=== PATIENT | female | born 1980 | race Caucasian/White ===

== ENCOUNTER 2017-08-25 12:45 | Emergency (ER) | payer BC ==
[~2017-08-25] VITALS: Ht 165.1 cm; Wt 89.0 kg
[~2017-08-25 12:45] MED LIST: PRENTAB26 PO
[2017-08-25 12:52] VITALS: TEMP 37.1; Ht 165.1 cm; Wt 89.0 kg
--- NOTE | 2017-08-25 13:28 | EMERGENCY ROOM VISIT NOTE ---
History Report prepared by Rhett: Pelon Sanchez Under the Supervision of: Dr. Almaz Rodgers D.O. First contact with patient: 13:05 Chief Complaint: ABDOMINAL PAIN Stated Complaint: LEFT LOWER ABDOMINAL PAIN Nursing Triage Summary: triage note: pt reports left abd pain since monday night. pt reports nausea. History of Present Illness The patient is a 36 year old female who presents to the Emergency Room with complaints of on and off left lower quadrant abdominal pain for the past three days. The pain is relieved with urination and standing. The patient notes that three days ago she had some back pain, though this went away and then later she got abdominal pain. She reports that two days ago she was adjusted by her chiropractor which helped with pain a little bit, and then she later had a bowel movement and felt a lot better. She notes that the bowel movement was "prickly". She states that yesterday after having [employer] she started to have the pain again, and it has been coming and going since then. She denies any more back pain, blood in her stools, and nausea. The patient states that she is prone to diarrhea, though she has not been diagnosed with IBS. She notes that she has had a bowel movement since the first one, and she notes that it was relatively normal for her. She additionally notes that she has a decreased appetite, chills, and shakiness. The patient denies any history of abdominal surgery and gynecologic problems, and she states that she has an IUD in place. She denies any family history of GI problems, kidney stones, and gynecological problems. She states that she has had an ear infection for the past 6 months. The patient has not been taking anything for the pain. Source of History: patient Onset: three days ago Position: abdomen (LLQ) Timing: other (on and off) Modifying Factors (Worsening): urination, other (standing) Associated Symptoms: + chills, + back pain, No nausea Note: Associated symptoms: Decreased appetite and shakiness Review of Systems See HPI for pertinent positives & negatives. A total of 10 systems reviewed and were otherwise negative. Past Medical & Surgical Social History Problems: (1) IUD (intrauterine device) in place Social History Smoking Status: Never Smoker Marital Status: Housing Status: lives with family Occupation Status: employed Current/Historical Medications Scheduled Multivit/Min/Iron/Fol Ac/Pren ( Vitamin), 1 TAB PO DAILY Probiotic Product (Probiotic), 1 TAB PO DAILY Allergies Coded Allergies: Amoxicillin (Verified Allergy, Unknown, ., 08/25/17) Cefaclor (Verified Allergy, Unknown, ., 08/25/17) Cefixime (Verified Allergy, Unknown, ., 08/25/17) Erythromycin (Verified Allergy, Unknown, ., 08/25/17) Penicillins (Verified Allergy, Unknown, ., 08/25/17) Pertussis Vaccine (Verified Allergy, Unknown, ., 08/25/17) Sodium Benzoate (Verified Allergy, Unknown, ., 08/25/17) Sulfa Drugs (Verified Allergy, Unknown, ., 08/25/17) Physical Exam Vital Signs Date Time Temp Pulse Resp B/P (MAP) Pulse Ox O2 Delivery O2 Flow Rate FiO2 08/25/17 15:53 92 18 137/98 98 Room Air 08/25/17 14:10 91 18 128/85 99 Room Air 08/25/17 12:52 37.1 115 20 164/97 99 Room Air Physical Exam GENERAL: alert, anxious and tearful appearing, well nourished, no distress, non- toxic EYE EXAM: normal conjunctiva, PERRL and EOM's grossly intact OROPHARYNX: no exudate, no erythema, lips, buccal mucosa, and tongue normal and mucous membranes are moist NECK: supple, no nuchal rigidity, no adenopathy, non-tender LUNGS: Clear to auscultation. Normal chest wall mechanics HEART: no murmurs, S1 normal and S2 normal ABDOMEN: Left lower quadrant tenderness and left parapubic area tenderness. Abdomen soft, normo-active bowel sounds, no masses, no rebound or guarding. BACK: Back is symmetrical on inspection and there is no deformity, no midline tenderness, no CVA tenderness. SKIN: no rashes and no bruising UPPER EXTREMITIES: upper extremities are grossly normal. LOWER EXTREMITIES: No pitting edema. NEURO EXAM: Normal sensorium, cranial nerves II-XII grossly intact, normal speech, no gross weakness of arms, no gross weakness of legs. Medical Decision & Procedures ER Provider Diagnostic Interpretation: Radiology results have been interpreted by the radiologist and reviewed by me. ABDOMEN AND PELVIS CT WITHOUT CONTRAST CT DOSE: 1010.75 mGycm HISTORY: Acute left lower quadrant abdominal pain llq pain TECHNIQUE: Multiaxial CT images of the abdomen and pelvis were performed without contrast. A dose lowering technique was utilized adhering to the principles of ALARA. COMPARISON STUDY: None. FINDINGS: The imaged lung bases appear clear. There is no pneumatosis or pneumoperitoneum identified. The imaged inferior cardiac chambers are unremarkable. Evaluation of the solid abdominal organs is limited without the use of IV contrast. Within the limitations of the study, the liver, gallbladder, spleen and and adrenal glands are within normal limits. Low attenuating 5 mm structure within the region of the pancreatic appears to demonstrate internal macroscopic fat attenuation possibly reflecting a small lipoma. No pancreatic ductal dilation. The kidneys, ureters and urinary bladder are within normal limits. No renal calculi or obstructive uropathy. There is an intrauterine device present within the mid and fundal portions of the uterus which appears to be appropriately positioned. Right adnexum is unremarkable. There is a well-defined hemorrhagic focus of the left adnexum measuring up to 2.1 x 1.4 cm with mild adjacent free fluid and stranding. Aorta is normal in course and caliber. There is no bulky adenopathy. No bowel obstruction or focal bowel wall thickening. There is moderate volume of formed stool from cecum, ascending and transverse colon. Normal appendix. Soft tissues are unremarkable. The bones appear to be intact. Mild degenerative changes of the SI joints. Small posterior disc osteophyte complex at L5-S1. IMPRESSION: 1. 2.1 cm hyperattenuating lesion of the left adnexum suggests hemorrhagic ovarian cyst with mild adjacent stranding/free fluid adjacent to the left adnexum, likely physiologic secondary to cyst rupture. 2. No bowel obstruction or focal bowel wall thickening. Normal appendix. 3. No renal calculi or obstructive uropathy. Electronically signed by: Arnold Galindo M.D. 08/25/2017 2:37 PM Dictated Date/Time: 08/25/2017 2:30 PM TRANSVAG-FEMALE PELVIS HISTORY: 36 years-old Female llq pain, cyst on CT acute left lower quadrant abdominal pain with cystic lesion of the left adnexum seen on comparison study COMPARISON: CT abdomen and pelvis 08/25/2017 TECHNIQUE: Multiple real-time sonographic images of the deep pelvic structures were obtained transabdominally and transvaginally assessing grayscale appearance, color and spectral flow FINDINGS: TRANSABDOMINAL: Anteflexed uterus measures 12.2 x 4.9 x 6.0 cm. Intrauterine device is present which appears to be appropriately positioned. Left ovary measures 4.6 x 2.3 x 4.4 cm. Within left ovary there is a heterogeneous echogenic structure measuring 3.4 x 2.4 x 2.6 cm suggesting hemorrhagic involuting follicle with mild adjacent free fluid. Arterial inflow to the left ovary is documented. Right ovary measures 3.3 x 1.8 x 2.0 cm and is unremarkable with arterial inflow documented. TRANSVAGINAL: Uterus measures 11.0 x 5.0 x 4.6 cm. Endometrium measures 1.0 cm in thickness. No myometrial mass lesions identified. IMPRESSION: 1. Mildly echogenic heterogeneous lesion of the left ovary measuring up to 3.4 cm suggests hemorrhagic ovarian cyst with mild likely physiologic adjacent free fluid. No evidence of ovarian torsion. 2. Unremarkable sonographic appearance of the right ovary. 3. IUD in situ. The above report was generated using voice recognition software. It may contain grammatical, syntax or spelling errors. Electronically signed by: Arnold Galindo M.D. 08/25/2017 3:50 PM Dictated Date/Time: 08/25/2017 3:46 PM Laboratory Results 08/25/17 13:30 Red Blood Count 4.06, Mean Corpuscular Volume 88.7, Mean Corpuscular Hemoglobin 30.8, Mean Corpuscular Hemoglobin Concent 34.7, Mean Platelet Volume 9.0, Neutrophils (%) (Auto) 66.6, Lymphocytes (%) (Auto) 24.5, Monocytes (%) (Auto) 7.2, Eosinophils (%) (Auto) 1.2, Basophils (%) (Auto) 0.4, Neutrophils # (Auto) 4.98, Lymphocytes # (Auto) 1.83, Monocytes # (Auto) 0.54, Eosinophils # (Auto) 0.09, Basophils # (Auto) 0.03 08/25/17 13:30 Test 08/25/17 13:30 White Blood Count 7.48 K/uL (4.8-10.8) Red Blood Count 4.06 M/uL (4.2-5.4) Hemoglobin 12.5 g/dL (12.0-16.0) Hematocrit 36.0 % (37-47) Mean Corpuscular Volume 88.7 fL (80-100) Mean Corpuscular Hemoglobin 30.8 pg (25-34) Mean Corpuscular Hemoglobin Concent 34.7 g/dl (32-36) Platelet Count 259 K/uL (130-400) Mean Platelet Volume 9.0 fL (7.4-10.4) Neutrophils (%) (Auto) 66.6 % Lymphocytes (%) (Auto) 24.5 % Monocytes (%) (Auto) 7.2 % Eosinophils (%) (Auto) 1.2 % Basophils (%) (Auto) 0.4 % Neutrophils # (Auto) 4.98 K/uL (1.4-6.5) Lymphocytes # (Auto) 1.83 K/uL (1.2-3.4) Monocytes # (Auto) 0.54 K/uL (0.11-0.59) Eosinophils # (Auto) 0.09 K/uL (0-0.5) Basophils # (Auto) 0.03 K/uL (0-0.2) RDW Standard Deviation 41.6 fL (36.4-46.3) RDW Coefficient of Variation 12.9 % (11.5-14.5) Immature Granulocyte % (Auto) 0.1 % Immature Granulocyte # (Auto) 0.01 K/uL (0.00-0.02) Prothrombin Time 10.4 SECONDS (9.0-12.0) Prothromb Time International Ratio 1.0 (0.9-1.1) Anion Gap 8.0 mmol/L (3-11) Est Creatinine Clear Calc Drug Dose 126.7 ml/min Estimated GFR () 130.1 Estimated GFR (Non- 112.3 BUN/Creatinine Ratio 14.0 (10-20) Calcium Level 8.7 mg/dl (8.5-10.1) Total Bilirubin 0.5 mg/dl (0.2-1) Aspartate Amino Transf (AST/SGOT) 19 U/L (15-37) Alanine Aminotransferase (ALT/SGPT) 43 U/L (12-78) Alkaline Phosphatase 93 U/L (45-117) Total Protein 7.6 gm/dl (6.4-8.2) Albumin 3.6 gm/dl (3.4-5.0) Globulin 4.0 gm/dl (2.5-4.0) Albumin/Globulin Ratio 0.9 (0.9-2) Lipase 304 U/L (73-393) Human Chorionic Gonadotropin, Qual NEG (NEG) Laboratory results per my review. ED Course 1305: The patient was evaluated in room C11. A complete history and physical exam was performed. 1447: I reevaluated the patient and updated her. I told her about the treatment plan. 1612: Upon reevaluation, the patient is feeling better. I discussed the findings and the treatment plan with the patient. She verbalizes agreement and understanding. She was discharged home. Medical Decision Differential diagnosis: Etiologies such as appendicitis, diverticulitis, PUD, biliary pathology, UTI, pancreatitis, obstruction, mesenteric ischemia, aortic pathology, infections, inflammatory bowel disease, renal colic, as well as others were entertained. Patient well-appearing here, discussed the results of bedside and need for close follow-up with [facility]. Discussed use of [id number] medications for pain. Discussed symptoms to watch and return for, she verbalized understanding was agreeable with plan. I have a low suspicion for any occult infectious etiology or torsion. I do not suspect any other additional GI or pathology given negative evaluation here. Patient hemodynamically stable throughout, and although mildly anxious regarding her pain as well as the findings, or malaise understanding was agreeable with plan. Medication Reconcilliation Current Medication List: was personally reviewed by me Blood Pressure Screening Patient's blood pressure: Elevated blood pressure Blood pressure disposition: Elevated BP felt to be situational Impression Primary Impression: Ovarian cyst Additional Impression: Abdominal pain Scribe Attestation The scribe's documentation has been prepared under my direction and personally reviewed by me in its entirety. I confirm that the note above accurately reflects all work, treatment, procedures, and medical decision making performed by me. Departure Information Dispostion Home / Self-Care Referrals No Doctor, Assigned (PCP) Forms Call Back Authorization, HOME CARE DOCUMENTATION FORM, IMPORTANT VISIT INFORMATION Patient Instructions My [facility] Additional Instructions Please call and follow-up with camp assistant regarding the cyst. You may use tylenol and ibuprofen as needed. Please drink plenty of water. If you have any worsening pain, develop fevers/chills, nausea/vomiting, abnormal discharge or bleeding, or you have any other new or concerning symptoms, please return to the emergency room. Problem Qualifiers Primary Impression: Ovarian cyst Laterality: left Qualified Codes: N83.202 - Unspecified ovarian cyst, left side Additional Impression: Abdominal pain Abdominal location: left lower quadrant Qualified Codes: R10.32 - Left lower quadrant pain
[2017-08-25 13:55] LABS: BASO % 0.4 %; BASO ABS # 0.03 K/uL (0-0.2); EOS % 1.2 %; EOS ABS # 0.09 K/uL (0-0.5); HEMOGLOBIN 12.5 g/dL (12.0-16.0); IG# 0.01 K/uL (0.00-0.02); LYMPH % 24.5 %; LYMPH ABS # 1.83 K/uL (1.2-3.4); MEAN CELL VOLUME 88.7 fL (80-100); MEAN CORPUSCULAR HEMOGLOBIN 30.8 pg (25-34); MEAN CORPUSCULAR HGB CONC 34.7 g/dl (32-36); MONO % 7.2 %; MONO ABS # 0.54 K/uL (0.11-0.59); NEUT % 66.6 %; NEUT ABS # 4.98 K/uL (1.4-6.5); PLATELET COUNT 259 K/uL (130-400); RED CELL DISTRIBUTION WIDTH CV 12.9 % (11.5-14.5); RED CELL DISTRIBUTION WIDTH SD 41.6 fL (36.4-46.3); WHITE BLOOD COUNT 7.48 K/uL (4.8-10.8)
[2017-08-25 14:00] LABS: ALBUMIN 3.6 gm/dl (3.4-5.0); CALCIUM 8.7 mg/dl (8.5-10.1); CREATININE 0.67 mg/dl (0.60-1.20); POTASSIUM 3.3 mmol/L (3.5-5.1)
[2017-08-25 14:03] LABS: TOTAL PROTEIN 7.6 gm/dl (6.4-8.2)
--- NOTE | 2017-08-25 14:39 | DIAGNOSTIC IMAGING REPORT ---
ABDOMEN AND PELVIS CT WITHOUT CONTRAST CT DOSE: 1010.75 mGycm HISTORY: Acute left lower quadrant abdominal pain llq pain TECHNIQUE: Multiaxial CT images of the abdomen and pelvis were performed without contrast. A dose lowering technique was utilized adhering to the principles of ALARA. COMPARISON STUDY: None. FINDINGS: The imaged lung bases appear clear. There is no pneumatosis or pneumoperitoneum identified. The imaged inferior cardiac chambers are unremarkable. Evaluation of the solid abdominal organs is limited without the use of IV contrast. Within the limitations of the study, the liver, gallbladder, spleen and and adrenal glands are within normal limits. Low attenuating 5 mm structure within the region of the pancreatic appears to demonstrate internal macroscopic fat attenuation possibly reflecting a small lipoma. No pancreatic ductal dilation. The kidneys, ureters and urinary bladder are within normal limits. No renal calculi or obstructive uropathy. There is an intrauterine device present within the mid and fundal portions of the uterus which appears to be appropriately positioned. Right adnexum is unremarkable. There is a well-defined hemorrhagic focus of the left adnexum measuring up to 2.1 x 1.4 cm with mild adjacent free fluid and stranding. Aorta is normal in course and caliber. There is no bulky adenopathy. No bowel obstruction or focal bowel wall thickening. There is moderate volume of formed stool from cecum, ascending and transverse colon. Normal appendix. Soft tissues are unremarkable. The bones appear to be intact. Mild degenerative changes of the SI joints. Small posterior disc osteophyte complex at L5-S1. IMPRESSION: 1. 2.1 cm hyperattenuating lesion of the left adnexum suggests hemorrhagic ovarian cyst with mild adjacent stranding/free fluid adjacent to the left adnexum, likely physiologic secondary to cyst rupture. 2. No bowel obstruction or focal bowel wall thickening. Normal appendix. 3. No renal calculi or obstructive uropathy. Electronically signed by: Arnold Galindo M.D. 08/25/2017 2:37 PM Dictated Date/Time: 08/25/2017 2:30 PM
[2017-08-25] MEDS ORDERED: MISCCAP80 PO (15:08)
--- NOTE | 2017-08-25 15:52 | DIAGNOSTIC IMAGING REPORT ---
TRANSVAG-FEMALE PELVIS HISTORY: 36 years-old Female llq pain, cyst on CT acute left lower quadrant abdominal pain with cystic lesion of the left adnexum seen on comparison study COMPARISON: CT abdomen and pelvis 08/25/2017 TECHNIQUE: Multiple real-time sonographic images of the deep pelvic structures were obtained transabdominally and transvaginally assessing grayscale appearance, color and spectral flow FINDINGS: TRANSABDOMINAL: Anteflexed uterus measures 12.2 x 4.9 x 6.0 cm. Intrauterine device is present which appears to be appropriately positioned. Left ovary measures 4.6 x 2.3 x 4.4 cm. Within left ovary there is a heterogeneous echogenic structure measuring 3.4 x 2.4 x 2.6 cm suggesting hemorrhagic involuting follicle with mild adjacent free fluid. Arterial inflow to the left ovary is documented. Right ovary measures 3.3 x 1.8 x 2.0 cm and is unremarkable with arterial inflow documented. TRANSVAGINAL: Uterus measures 11.0 x 5.0 x 4.6 cm. Endometrium measures 1.0 cm in thickness. No myometrial mass lesions identified. IMPRESSION: 1. Mildly echogenic heterogeneous lesion of the left ovary measuring up to 3.4 cm suggests hemorrhagic ovarian cyst with mild likely physiologic adjacent free fluid. No evidence of ovarian torsion. 2. Unremarkable sonographic appearance of the right ovary. 3. IUD in situ. The above report was generated using voice recognition software. It may contain grammatical, syntax or spelling errors. Electronically signed by: Arnold Galindo M.D. 08/25/2017 3:50 PM Dictated Date/Time: 08/25/2017 3:46 PM
[2017-08-25 15:53] VITALS: BP 137/98; PULSE 92; O2SAT 98
== END 2017-08-25 16:34 | disposition home or self-care (01) ==
LOC: C.EDB 12:46 → C.EDC 16:34
DX: N83.202 Unspecified ovarian cyst, left side (principal); Z97.5 Presence of (intrauterine) contraceptive device; Z88.0 Allergy status to penicillin; Z88.1 Allergy status to other antibiotic agents; Z88.7 Allergy status to serum and vaccine; Z88.2 Allergy status to sulfonamides; Z88.8 Allergy status to other drugs, medicaments and biological substances